=== PATIENT | female | born 1935 | race Caucasian/White ===

== ENCOUNTER 2017-01-22 19:35 | Emergency (ER) | payer MEDICARE, BC ==
[~2017-01-22] VITALS: Ht 154.9 cm; Wt 77.3 kg
[~2017-01-22 19:35] MED LIST: ASPIRIN 81M81 MG/TA2 PO; CALTRATE 600600 MG PO; NO HOME MEDICATIONS; VITAMIN D 400400 IU PO; VITAMIN E100 I3 PO
[2017-01-22 19:41] VITALS: BP 170/85; TEMP 97.9
[2017-01-22] MEDS ORDERED: NORCO 325 MG-51 TAB PO (22:02)
[2017-01-22 22:30] VITALS: PULSE 70
== END 2017-01-22 22:30 | disposition home or self-care (01) ==
LOC: COL.ER 19:35
DX: S82.034A Nondisplaced transverse fracture of right patella, initial encounter for closed fracture (principal); W01.198A Fall on same level from slipping, tripping and stumbling with subsequent striking against other object, initial encounter; Y92.008 Other place in unspecified non-institutional (private) residence as the place of occurrence of the external cause
CPT/HCPCS: L1830

== ENCOUNTER → 2019-01-08 | Outpatient (CLI) | payer MEDICARE, BC, MEDICAID ==
[~2019-01-08] MED LIST changes: +NORCO 325 MG-51 TAB PO
== END ==
LOC: COL.VAS 13:02
DX: S89.91XA Unspecified injury of right lower leg, initial encounter (principal); S80.11XA Contusion of right lower leg, initial encounter

== ENCOUNTER 2019-04-22 14:33 | Inpatient (IN) | payer MEDICARE, BC, MEDICAID ==
[~2019-04-22] VITALS: Ht 152.4 cm; Wt 81.3 kg
[2019-04-22] VITALS (8 sets, daily range): BP systolic 144–157; BP diastolic 58–69; PULSE 56–64; TEMP 98.2
--- NOTE | 2019-04-22 15:00 | NUR ---
Patient alert and oriented, answers questions appropriately. See assessment. Abdomen rounded and firm. Bowel sounds tinkling. C/o nausea and vomiting. Breath with stool odor noted. No flatus. Dr Pastor notified of arrival. Orders for NGT received. 18fr NGT placed with no issues, large amount of dark brown liquid returned. No other c/o at this time.
[2019-04-23] VITALS (7 sets, daily range): BP systolic 120–160; BP diastolic 50–61; PULSE 54–64; TEMP 97.7–98.3
--- NOTE | 2019-04-23 05:29 | NUR ---
Patient has rested well overnight. Patient continues to deny pain post operatively. NG tube remains in place and is clamped. Residuals drawn every four hours after returning to the floor from PACUand were 25ml and 32ml respectively. Patient continues to deny nausea as well. Patient has been up with assist to void, patient required minimal assist. Patient denies needs at this time, call light within reach.
[2019-04-23 07:02] LABS: BASO % 0.1 % (0.0-2.0); GRAN # 9.9 (1.4-6.5); GRAN % 86.3 % (42.2-75.2); HEMOGLOBIN 12.1 g/dl (12.5-16.0); LYMPH # 0.7 (1.2-3.4); LYMPH % 6.3 % (20.0-51.0); MEAN CELL VOLUME 94 fl (80.0-100.0); MEAN CORPUSCULAR HEMOGLOBIN 32 pg (27.0-31.0); MEAN CORPUSCULAR HGB CONC 34 g/dl (33.0-37.0); MEAN PLATELET VOLUME 11.2 fl (7.4-10.4); MONO # 0.8 (0.1-0.6); MONO % 6.7 % (1.7-9.3); PLATELET COUNT 168 K/mm3 (130-400); REDCELL DISTRIBUTION WIDTH-CV 12.1 % (11.5-14.5)
[2019-04-23 07:04] LABS: HEMATOCRIT 35.6 % (37.0-47.0)
[2019-04-23 07:20] LABS: CREATININE, serum 0.55 (0.52-1.25); POTASSIUM 3.5 mmol/L (3.4-5.0)
--- NOTE | 2019-04-23 08:00 | NUR ---
PATIENT ASSISTED TO THE CHAIR THIS MORNING. PATIENT IS A&OX4. VSS. BOWEL SOUNDS ACTIVE ALL FOUR QUADRANTS. PATIENT DENIES COMPLAINTS OF N/V. PATIENT IS NPO. NG TUBE SECURED TO RIGHT NARE AND IS CLAMPED. ABDOMEN IS ROUNDED AND SOFT TO PALPATION. ABDOMINAL LAP SITES X3 DRESSED WITH BANDAIDS AND ARE CD&I. IV FLUIDS INFUSING TO RIGHT AC INT. CALL LIGHT WITHIN REACH. NO OTHER NEEDS AT THIS TIME.
--- NOTE | 2019-04-23 08:50 | NUR ---
PATIENT'S NG TUBE RE-CONNECTED BACK TO SUCTION. NO IMMEDIATE RETURN.
--- NOTE | 2019-04-23 09:25 | NUR ---
CALLED WITH UPDATE. NO ADDITIONAL OUTPUT FROM NG TUBE WHEN RE-CONNECTED TO SUCTION. PATIENT DENIES COMPLAINTS OF N/V. ORDERS TO REMOVE NG TUBE AND START PATIENT ON CLEAR LIQUID DIET GIVEN TORB FROM DR. MORENO TO THIS NURSE.
--- NOTE | 2019-04-23 09:55 | NUR ---
PATIENT'S NG TUBE REMOVED PER DR. ARNDT'S ORDERS. PATIENT TOLERATED WELL. PATIENT STARTED ON CLEAR LIQUIDS. NO OTHER NEEDS AT THIS TIME.
--- NOTE | 2019-04-23 11:25 | NUR ---
PATIENT CALLED OUT REPORTING THAT SHE FEELS NAUSEATED AFTER EATING HER CLEAR LIQUID TRAY. NO EPISODES OF EMESIS AT THIS TIME. PATIENT STATES THAT SHE ATE RATHER QUICKLY. PATIENT EDUCATED ON EATING MEALS SLOWLY SHE PROGRESSES HER DIET. PATIENT ALSO REPORTS THAT SHE IS NOW PASSING GAS. WILL CONTINUE TO MONITOR.
--- NOTE | 2019-04-23 12:04 | NUR ---
Initial visit; Patient thanked Drill Presser for looking in on her and offering God's blessings and to keep her in Drill Presser's prayers.
--- NOTE | 2019-04-23 16:12 | NUR ---
SW met with patient to discuss discharge planning. Patient lives independently at home alone. Patient reports she has a lot of family that live close by. Patient's PCP is Dr Gardner and she obtains prescriptions from [facility]. Patient reports she is independent with all ADLs and she does not use any DME or home health services. Patient reports she does have a living will and DPOA-HC. SW requested patient ask her family to provide a copy for the chart. SW does not anticipate any discharge needs.
--- NOTE | 2019-04-23 19:12 | NUR ---
REPORT GIVEN TO RUBIN LAUGHLIN.
--- NOTE | 2019-04-23 22:01 | NUR ---
Pt's daughter called to visit. Plans to come visit tomorrow.
[2019-04-24 04:00] VITALS: BP 180/67; PULSE 66; TEMP 97.9
--- NOTE | 2019-04-24 07:20 | NUR ---
End of shift report given to RUBIN Castaneda.
[2019-04-24 08:37] VITALS: BP 151/64; PULSE 67; TEMP 98.3
--- NOTE | 2019-04-24 10:00 | NUR ---
Patient alert and oriented, answers questions appropraitely. See assessment. Abdomen soft, non tender, non distended. Bowel sounds active x4 quads. +Flatus. Abdomen lap sites with edges well approximated, no redness or draining noted. Post op exercises reviewed. No c/o at this time.
[2019-04-24 11:42] VITALS: BP 150/63; PULSE 71; TEMP 98.6
--- NOTE | 2019-04-24 15:05 | NUR ---
Discharge instructions reviewed with patient and family, verbalized understanding. Discharged via wheelchair to auto/home with family at 1500.
== END 2019-04-24 15:00 | disposition home or self-care (01) | DRG 355 ==
LOC: SURG 14:33
PROVIDERS: ADMIT Surgery
PROC: 0WQF4ZZ Repair Abdominal Wall, Percutaneous Endoscopic Approach (ICD-10-PCS; principal; 2019-04-22 17:30)
DX: K43.6 Other and unspecified ventral hernia with obstruction, without gangrene (principal); M19.90 Unspecified osteoarthritis, unspecified site; Z87.891 Personal history of nicotine dependence; Z79.82 Long term (current) use of aspirin; Z79.891 Long term (current) use of opiate analgesic; Z90.710 Acquired absence of both cervix and uterus; Z88.5 Allergy status to narcotic agent; Z88.9 Allergy status to unspecified drugs, medicaments and biological substances; Z85.3 Personal history of malignant neoplasm of breast
CPT/HCPCS: J0690; J1100; J1885; J2405; J2704; J2765; J3010; J7030; J7120